=== PATIENT | male | born 1965 | race Two or more races ===

== ENCOUNTER 2023-02-21 22:33 | Emergency (ER) | payer BC, OTHER ==
[~2023-02-21] VITALS: Ht 172.7 cm; Wt 96.2 kg
[2023-02-21 22:46] VITALS: BP 153/78; PULSE 53; RESP 0; TEMP 97.4; O2SAT 97
[2023-02-21] MEDS ORDERED: NAPR-1704 PO (23:18)
[2023-02-21] MEDS ORDERED: KETOROLAC 30 MG/ML VIAL IM ONE (23:25)
--- NOTE | 2023-02-21 23:34 | NUR ---
Patient discharged with v/s stable. Written and verbal after care instructions given and explained. New rx naproxen. Patient verbalized understanding. Ambulatory with steady gait. All questions addressed prior to discharge. Advised to follow up with PMD.
[2023-02-21 23:35] VITALS: BP 153/78; PULSE 53; RESP 0; TEMP 97.4; O2SAT 97
== END 2023-02-21 23:34 | disposition home or self-care (01) ==
LOC: MED 22:33
DX: S86.811A Strain of other muscle(s) and tendon(s) at lower leg level, right leg, initial encounter (principal); E11.9 Type 2 diabetes mellitus without complications; Z79.4 Long term (current) use of insulin; Z79.899 Other long term (current) drug therapy; X58.XXXA Exposure to other specified factors, initial encounter; Y93.89 Activity, other specified; Y92.89 Other specified places as the place of occurrence of the external cause; Y99.8 Other external cause status
CPT/HCPCS: 96372; 99283; J1885